=== PATIENT | female | born 1990 | race African-American/Black ===

== ENCOUNTER 2022-12-24 22:37 | Emergency (ER) | payer SELFPAY ==
[2022-12-24 23:10] LABS: Bacteria/HPF None Seen HPF (None Seen); Bilirubin Negative (Negative); Blood, Urine Negative (Negative); CAUTI Indications for Culture Pelvic or flank pain; Clarity Clear (Clear); Glucose, Urine (Dipstick) Normal (Negative); Ketone, Urine Negative (Negative); Leukocyte Negative Leu/uL (Negative); Nitrite Negative (Negative); Protein, Urine (Dipstick) 10 mg/dL (Neg-Trace); RBC/HPF 0-3 HPF (0-3); Specific Gravity, Urine 1.027 (1.002-1.036); Squamous Epithelial 0-3 HPF (0-3); Urobilinogen Normal mg/dL (Less than 2); WBC/HPF 0-3 HPF (0-3)
[2022-12-24 23:12] LABS: Pregnancy Test - Urine (BHCG) Negative (Negative); Pregu Control Background? CLEAR/WHITE (CLR/WHITE); Pregu Control Bar Appear? YES (CONTROL BAR); Specific Gravity 1.027 (1.002-1.036); Urine Culture Reflex No No
[2022-12-24] MEDS ORDERED: Ketorolac Tromethamine 30 MG/ML VIAL ONE (23:21)
[2022-12-24] MEDS ORDERED: Acetaminophen 325 MG TAB ONE (23:35)
[2022-12-24] MEDS ORDERED: Ibuprofen 200 MG TAB ONE (23:35)
[2022-12-25] MEDS ORDERED: Lidocaine 1% PF 5 ML VIAL ONE (00:14)
[2022-12-25] MEDS ORDERED: cefTRIAXone (ROCEPHIN) 500 MG VIAL ONE ×2 (00:14→00:16)
[2022-12-25 23:11] LABS: Chlamydia by PCR, Vaginal Swab DETECTED (NotDetected); GC by PCR, Vaginal Swab Not Detected (NotDetected)
== END 2022-12-25 00:58 | disposition home or self-care (01) ==
LOC: ERS 22:37
DX: N72 Inflammatory disease of cervix uteri (principal); F17.290 Nicotine dependence, other tobacco product, uncomplicated
CPT/HCPCS: 81001; 81025; 87480; 87491; 87510; 87591; 87660; 96372; 99284; J0696; J1885